=== PATIENT | female | born 1930 | race African-American/Black ===

== ENCOUNTER 2016-09-26 17:03 | Inpatient (IN) | payer MEDICARE, BC ==
[~2016-09-26] VITALS: Ht 160 cm; Wt 58.0 kg
[~2016-09-26 17:03] MED LIST: ASPI81 PO; BENA10TA3 PO; CARB200T6 PO; CITA20TA9 PO; DONE10TA PO; KDUR20 PO; LEVO500 PO; OMEP20 PO; OXYB5 PO; PRAV40 PO
[2016-09-26 19:11] LABS: EOSINOPHILS # (AUTO) 0.02 K/uL (0.00-0.70); EOSINOPHILS % (AUTO) 0.12 % (1.0-6.0); HEMATOCRIT 32.3 % (36-46); HEMOGLOBIN 11.2 g/dL (12.0-16.0); LYMPHOCYTES # (AUTO) 0.6 K/uL (1.0-4.8); MEAN CORPUSCULAR HEMOGLOBIN 32.4 pg (26.0-34.0); MEAN CORPUSCULAR HGB CONC 34.6 G/dL (31.0-37.0); MEAN CORPUSCULAR VOLUME 94 fL (80-100); MONOCYTES # (AUTO) 0.7 K/uL (0.1-1.0); MONOCYTES % (AUTO) 4.5 % (2.0-9.0); NEUTROPHILS # (AUTO) 13.3 K/uL (1.8-7.7); PLATELET COUNT (AUTO) 199 K/uL (150-450); RED BLOOD CELL COUNT(AUTO) 3.45 MIL/uL (4.00-5.20); RED CELL DISTRIBUTION WIDTH 14.2 % (11.5-14.5); WHITE BLOOD COUNT (AUTO) 14.6 K/uL (4.5-11.0)
[2016-09-26 19:12] LABS: NEUTROPHILS % (AUTO) 91.4 % (40.0-70.0)
[2016-09-26 19:23] LABS: ANION GAP 8 mmol/L (8-16); CALCIUM, TOTAL 8.7 mg/dL (8.8-10.5); CARBON DIOXIDE 28 mmol/L (22-29); CHLORIDE 105 mmol/L (98-107); CREATININE 1.44 mg/dL (0.60-1.30); GLOMERULAR FILTR. RATE CALC 42 mL/min (>60); POTASSIUM 4.1 mmol/L (3.5-5.1); PROTHROMBIN TIME 10.7 SEC (9.4-11.6); SODIUM SERUM 141 mmol/L (136-145); UREA NITROGEN, BLOOD 20 mg/dL (7-18)
[2016-09-26 19:31] LABS: RBC MORPHOLOGY COMMENT NORMAL RBC MORPH
[2016-09-26 19:34] LABS: B-TYPE NATRIURETIC PEPTIDE 66 pg/mL (0-100)
[2016-09-26 19:47] LABS: ALANINE AMINOTRANSFERASE 23 U/L (12-78); ALBUMIN 3.2 g/dL (3.4-5.0); ASPARTATE AMINOTRANSFERASE 20 U/L (15-37); BILIRUBIN,TOTAL 0.3 mg/dL (0.1-1.0); CREATINE KINASE, TOTAL 105 U/L (26-192); TOTAL PROTEIN, SERUM 6.4 g/dL (6.4-8.2)
[2016-09-26] MEDS ORDERED: CefTRIAXone 1 GM/DEXTROSE 50 ML IV ONE (20:45)
[2016-09-26] MEDS ORDERED: AZITHROMYCIN 500 MG/NS 250 ML IV ONE (20:45)
[2016-09-26] MEDS ORDERED: SODIUM CHLORIDE 0.9% 1,000 ML IV ONE (20:45)
[2016-09-26] MEDS ORDERED: ACETAMINOPHEN 325 MG TABLET PO PRN (21:45)
[2016-09-26] MEDS ORDERED: 0.9% SODIUM CHLORIDE 10 ML SYRINGE IVP PRN (21:45)
[2016-09-26 21:54] LABS: ADD UA MICROSCOPIC YES; APPEARANCE,URINE CLOUDY (CLEAR); GLUCOSE, URINE (UA) NEGATIVE (NEGATIVE); KETONES,URINE NEGATIVE (NEGATIVE); LEUKOCYTE ESTERASE ,URINE MODERATE (NEGATIVE); OCCULT BLOOD,URINE NEGATIVE (NEGATIVE); PROTEIN,URINE TRACE (NEGATIVE)
[2016-09-26] MEDS ORDERED: IPRATROPIUM BROMIDE 0.5 MG/2.5 ML NEB SOLUTION NEB PRN (22:00)
[2016-09-26] MEDS ORDERED: BISACODYL 10 MG RECTAL RECTAL SUPPOSITORY PR PRN (22:00)
[2016-09-26] MEDS ORDERED: ONDANSETRON HCL 4 MG/2 ML VIAL IVP PRN (22:00)
[2016-09-26] MEDS ORDERED: MAGNESIUM HYDROXIDE SUSPENSION 30 ML UDCUP PO PRN (22:00)
[2016-09-26] MEDS ORDERED: ALBUTEROL SULFATE 2.5 MG/0.5 ML NEB SOLUTION NEB PRN (22:00)
[2016-09-26 22:02] LABS: SQUAMOUS EPITHELIAL CELL,UR Moderate /LPF (None Seen)
[2016-09-26 22:03] LABS: RBC,URINE 0-2 /HPF (0-2)
[2016-09-26 23:50] VITALS: BP 126/72
[2016-09-27 04:57] VITALS: BP 124/56
[2016-09-27 06:36] LABS: BASOPHILS # (AUTO) 0.02 K/uL (0.00-0.20); BASOPHILS % (AUTO) 0.2 % (0.0-2.0); EOSINOPHILS # (AUTO) 0.04 K/uL (0.00-0.70); EOSINOPHILS % (AUTO) 0.38 % (1.0-6.0); HEMATOCRIT 28.3 % (36-46); HEMOGLOBIN 9.7 g/dL (12.0-16.0); LYMPHOCYTES # (AUTO) 1.9 K/uL (1.0-4.8); LYMPHOCYTES % (AUTO) 17.1 % (22.0-44.0); MEAN CORPUSCULAR HGB CONC 34.3 G/dL (31.0-37.0); MEAN CORPUSCULAR VOLUME 93 fL (80-100); MONOCYTES # (AUTO) 0.9 K/uL (0.1-1.0); MONOCYTES % (AUTO) 8.2 % (2.0-9.0); NEUTROPHILS % (AUTO) 74.2 % (40.0-70.0); PLATELET COUNT (AUTO) 162 K/uL (150-450); RED BLOOD CELL COUNT(AUTO) 3.03 MIL/uL (4.00-5.20); RED CELL DISTRIBUTION WIDTH 13.6 % (11.5-14.5); WHITE BLOOD COUNT (AUTO) 10.8 K/uL (4.5-11.0)
[2016-09-27 07:11] LABS: ANION GAP 4 mmol/L (8-16); CALCIUM, TOTAL 8.4 mg/dL (8.8-10.5); CARBON DIOXIDE 31 mmol/L (22-29); CHLORIDE 106 mmol/L (98-107); CHOL/HDL RATIO 2.1 (3.9-5.7); CREATINE KINASE MB 0.6 ng/mL (0-5); CREATINE KINASE, TOTAL 80 U/L (26-192); CREATININE 1.31 mg/dL (0.60-1.30); GLOMERULAR FILTR. RATE CALC 47 mL/min (>60); SODIUM SERUM 141 mmol/L (136-145); THYROID STIMULATING HORMONE 0.38 uIU/mL (0.36-3.74); UREA NITROGEN, BLOOD 20 mg/dL (7-18)
[2016-09-27 07:12] VITALS: BP 126/75
[2016-09-27] MEDS: ACETAMINOPHEN 325 MG TABLET PO PRN ×2 (07:18→19:32)
[2016-09-27 07:41] LABS: HEMOGLOBIN A1C 5.9 % (4.5-6.2)
[2016-09-27] MEDS: PANTOPRAZOLE SODIUM 40 MG/VIAL IVP SCH (09:10)
[2016-09-27] MEDS: PRAVASTATIN SODIUM 40 MG TABLET PO SCH (09:11)
[2016-09-27] MEDS: CarBAMazepine 200 MG TABLET PO SCH (09:11)
[2016-09-27] MEDS: HEPARIN SODIUM,PORCINE 5,000 UNITS/ML VIAL SQ SCH ×2 (09:11→20:21)
[2016-09-27] MEDS: OXYBUTYNIN CHLORIDE 5 MG TABLET PO SCH ×2 (09:12→20:21)
[2016-09-27 11:09] LABS: LACTATE DEHYDROGENASE 300 U/L (81-234); TOTAL PROTEIN, SERUM 6.1 g/dL (6.4-8.2)
[2016-09-27 11:21] VITALS: BP 136/68
[2016-09-27 15:22] VITALS: BP 121/70
[2016-09-27 19:30] VITALS: BP 103/70
[2016-09-27] MEDS ORDERED: SODIUM CHLORIDE 0.9% 250 ML IV ONE (20:21)
[2016-09-27] MEDS: CefTRIAXone 1 GM/DEXTROSE 50 ML IV SCH (20:22)
[2016-09-27] MEDS: AZITHROMYCIN 500 MG/NS 250 ML IV SCH (21:32)
[2016-09-27 22:44] LABS: APPEARANCE,UNSPUN,BODY FLUID BLOODY (CLEAR); COLOR,BODY FLUID RED (LT YELLOW)
[2016-09-27 22:45] LABS: OTHER CELLS,BODY FLUID MACROPHAGES
[2016-09-27 22:47] LABS: PH, BODY FLUID 8
[2016-09-27 23:44] VITALS: BP 142/78
[2016-09-28] VITALS (7 sets, daily range): BP systolic 119–155; BP diastolic 56–85
[2016-09-28 06:37] LABS: BASOPHILS % (AUTO) 0.4 % (0.0-2.0); EOSINOPHILS % (AUTO) 1.7 % (1.0-6.0); HEMOGLOBIN 8.8 g/dL (12.0-16.0); LYMPHOCYTES # (AUTO) 2.1 K/uL (1.0-4.8); LYMPHOCYTES % (AUTO) 27.1 % (22.0-44.0); MEAN CORPUSCULAR HEMOGLOBIN 31.2 pg (26.0-34.0); MEAN CORPUSCULAR HGB CONC 32.7 G/dL (31.0-37.0); MEAN CORPUSCULAR VOLUME 96 fL (80-100); MONOCYTES # (AUTO) 0.7 K/uL (0.1-1.0); MONOCYTES % (AUTO) 8.6 % (2.0-9.0); NEUTROPHILS # (AUTO) 4.9 K/uL (1.8-7.7); NEUTROPHILS % (AUTO) 62.2 % (40.0-70.0); PLATELET COUNT (AUTO) 151 K/uL (150-450); RED BLOOD CELL COUNT(AUTO) 2.83 MIL/uL (4.00-5.20); RED CELL DISTRIBUTION WIDTH 14.5 % (11.5-14.5); WHITE BLOOD COUNT (AUTO) 7.9 K/uL (4.5-11.0)
[2016-09-28 06:58] LABS: CALCIUM, TOTAL 8.3 mg/dL (8.8-10.5); CREATININE 1.32 mg/dL (0.60-1.30); POTASSIUM 4.2 mmol/L (3.5-5.1)
[2016-09-28] MEDS: PANTOPRAZOLE SODIUM 40 MG/VIAL IVP SCH (08:11)
[2016-09-28] MEDS: HEPARIN SODIUM,PORCINE 5,000 UNITS/ML VIAL SQ SCH ×2 (08:12→20:32)
[2016-09-28] MEDS: PRAVASTATIN SODIUM 40 MG TABLET PO SCH (08:12)
[2016-09-28] MEDS: OXYBUTYNIN CHLORIDE 5 MG TABLET PO SCH ×2 (08:12→20:24)
[2016-09-28] MEDS: CarBAMazepine 200 MG TABLET PO SCH (08:12)
[2016-09-28 17:10] LABS: GLUCOSE, BODY FLUID,REF 52 mg/dL; LDH,BODY FLUID,REF 352 IU/L; TOTAL PROTEIN,BODY FLUID,REF 4.7 g/dL
[2016-09-28] MEDS: CefTRIAXone 1 GM/DEXTROSE 50 ML IV SCH (20:24)
[2016-09-28] MEDS: AZITHROMYCIN 500 MG/NS 250 ML IV SCH (21:29)
[2016-09-29 04:30] VITALS: BP 124/70
[2016-09-29] MEDS ORDERED: 0.9% SODIUM CHLORIDE 10 ML SYRINGE IVP PRN (05:15)
[2016-09-29 07:32] VITALS: BP 157/87
[2016-09-29 09:41] LABS: BASOPHILS % (AUTO) 0.3 % (0.0-2.0); EOSINOPHILS % (AUTO) 1.3 % (1.0-6.0); HEMATOCRIT 27.9 % (36-46); HEMOGLOBIN 9.2 g/dL (12.0-16.0); LYMPHOCYTES % (AUTO) 21.9 % (22.0-44.0); MEAN CORPUSCULAR HEMOGLOBIN 31.4 pg (26.0-34.0); MEAN CORPUSCULAR HGB CONC 32.8 G/dL (31.0-37.0); MEAN CORPUSCULAR VOLUME 96 fL (80-100); MONOCYTES # (AUTO) 0.7 K/uL (0.1-1.0); MONOCYTES % (AUTO) 7.6 % (2.0-9.0); NEUTROPHILS # (AUTO) 6.2 K/uL (1.8-7.7); NEUTROPHILS % (AUTO) 68.9 % (40.0-70.0); PLATELET COUNT (AUTO) 173 K/uL (150-450); RED BLOOD CELL COUNT(AUTO) 2.92 MIL/uL (4.00-5.20); RED CELL DISTRIBUTION WIDTH 14.3 % (11.5-14.5); WHITE BLOOD COUNT (AUTO) 8.9 K/uL (4.5-11.0)
[2016-09-29] MEDS: PANTOPRAZOLE SODIUM 40 MG/VIAL IVP SCH (10:12)
[2016-09-29] MEDS: CarBAMazepine 200 MG TABLET PO SCH (10:13)
[2016-09-29] MEDS: PRAVASTATIN SODIUM 40 MG TABLET PO SCH (10:13)
[2016-09-29] MEDS: OXYBUTYNIN CHLORIDE 5 MG TABLET PO SCH ×2 (10:13→20:10)
[2016-09-29] MEDS: HEPARIN SODIUM,PORCINE 5,000 UNITS/ML VIAL SQ SCH ×2 (10:13→20:15)
[2016-09-29 11:27] VITALS: BP 128/71
[2016-09-29 15:20] VITALS: BP 114/59
[2016-09-29] MEDS: ACETAMINOPHEN 325 MG TABLET PO PRN (18:08)
[2016-09-29 19:45] VITALS: BP 134/77
[2016-09-29] MEDS: CefTRIAXone 1 GM/DEXTROSE 50 ML IV SCH (20:10)
[2016-09-29] MEDS: AZITHROMYCIN 500 MG/NS 250 ML IV SCH (21:00)
[2016-09-29 23:43] VITALS: BP 126/68
[2016-09-30 04:08] VITALS: BP 133/80
[2016-09-30 07:30] VITALS: BP 128/78
[2016-09-30] MEDS: HEPARIN SODIUM,PORCINE 5,000 UNITS/ML VIAL SQ SCH ×2 (08:25→21:21)
[2016-09-30] MEDS: PANTOPRAZOLE SODIUM 40 MG/VIAL IVP SCH (08:32)
[2016-09-30] MEDS ORDERED: LIDOCAINE HCL/PF 1% 5 ML VIAL ONE (10:21)
[2016-09-30 11:17] VITALS: BP 117/73
[2016-09-30] MEDS: OXYBUTYNIN CHLORIDE 5 MG TABLET PO SCH ×2 (12:05→21:21)
[2016-09-30] MEDS: PRAVASTATIN SODIUM 40 MG TABLET PO SCH (12:05)
[2016-09-30] MEDS: CarBAMazepine 200 MG TABLET PO SCH (12:06)
[2016-09-30 13:07] LABS: ALBUMIN (IFE & ELECTROPHOR) 2.8 g/dL (2.9-4.4); ALPHA-2 (IFE & PEP) 0.7 g/dL (0.4-1.0); IGG (IMMUNOFIXATION) 766 mg/dL (700-1600); M-SPIKE (IEP) Not Observed g/dL (Not Observed); TOTAL PROTEIN 5.7 g/dL (6.0-8.5)
[2016-09-30 15:00] VITALS: BP 114/72
[2016-09-30 19:59] VITALS: BP 135/78
[2016-09-30] MEDS: CefTRIAXone 1 GM/DEXTROSE 50 ML IV SCH (21:21)
[2016-09-30] MEDS: AZITHROMYCIN 500 MG/NS 250 ML IV SCH (22:37)
[2016-10-01 00:33] VITALS: BP 122/78
[2016-10-01 04:47] VITALS: BP 150/86
[2016-10-01 07:20] VITALS: BP 146/84
[2016-10-01] MEDS: HEPARIN SODIUM,PORCINE 5,000 UNITS/ML VIAL SQ SCH ×2 (09:01→20:11)
[2016-10-01] MEDS: PANTOPRAZOLE SODIUM 40 MG/VIAL IVP SCH (09:01)
[2016-10-01 11:16] VITALS: BP 137/92
[2016-10-01 13:14] LABS: ALPHA-1 URINE (ELP) 1.7 %; ALPHA-2 URINE(ELP) 9.5 %; BETA URINE(ELP) 20.2 %; CREATININE, URINE (mALB) 95.7 mg/dL (Not Estab.); GAMMA URINE(ELP) 16.8 %
[2016-10-01] MEDS: CarBAMazepine 200 MG TABLET PO SCH (14:14)
[2016-10-01] MEDS: PRAVASTATIN SODIUM 40 MG TABLET PO SCH (14:14)
[2016-10-01] MEDS: OXYBUTYNIN CHLORIDE 5 MG TABLET PO SCH ×2 (14:14→20:11)
[2016-10-01 15:53] VITALS: BP 130/85
[2016-10-01 19:41] VITALS: BP 105/65
[2016-10-01] MEDS: CefTRIAXone 1 GM/DEXTROSE 50 ML IV SCH (20:11)
[2016-10-02 00:05] VITALS: BP 136/83
[2016-10-02] MEDS: AZITHROMYCIN 500 MG/NS 250 ML IV SCH (00:10)
[2016-10-02 05:06] VITALS: BP 112/66
[2016-10-02 07:24] VITALS: BP 154/82
[2016-10-02] MEDS: PANTOPRAZOLE SODIUM 40 MG/VIAL IVP SCH (10:05)
[2016-10-02] MEDS: PRAVASTATIN SODIUM 40 MG TABLET PO SCH (10:06)
[2016-10-02] MEDS: CarBAMazepine 200 MG TABLET PO SCH (10:06)
[2016-10-02] MEDS: OXYBUTYNIN CHLORIDE 5 MG TABLET PO SCH (10:06)
[2016-10-02] MEDS: HEPARIN SODIUM,PORCINE 5,000 UNITS/ML VIAL SQ SCH (10:07)
[2016-10-02] MEDS: ACETAMINOPHEN 325 MG TABLET PO PRN (10:07)
[2016-10-02 11:42] VITALS: BP 142/78
== END 2016-10-02 15:19 | DRG 194 ==
LOC: EMS 17:06 → 5S 21:45
PROVIDERS: ADMIT Internal Medicine Geriatric Medicine; ATTEND Internal Medicine Geriatric Medicine
PROC: 5A0935Z Assistance with Respiratory Ventilation, Less than 24 Consecutive Hours (ICD-10-PCS; 2016-09-26)
PROC: 0W993ZZ Drainage of Right Pleural Cavity, Percutaneous Approach (ICD-10-PCS; principal; 2016-09-27)
PROC: 0GBG3ZX Excision of Left Thyroid Gland Lobe, Percutaneous Approach, Diagnostic (ICD-10-PCS; 2016-09-30)
DX: J18.9 Pneumonia, unspecified organism (principal); J90 Pleural effusion, not elsewhere classified; N25.81 Secondary hyperparathyroidism of renal origin; I13.0 Hypertensive heart and chronic kidney disease with heart failure and stage 1 through stage 4 chronic kidney disease, or unspecified chronic kidney disease; I50.30 Unspecified diastolic (congestive) heart failure; R55 Syncope and collapse; R32 Unspecified urinary incontinence; E78.5 Hyperlipidemia, unspecified; E11.22 Type 2 diabetes mellitus with diabetic chronic kidney disease; K21.9 Gastro-esophageal reflux disease without esophagitis; E86.0 Dehydration; I49.5 Sick sinus syndrome; E04.1 Nontoxic single thyroid nodule; R16.0 Hepatomegaly, not elsewhere classified; D18.09 Hemangioma of other sites; G30.9 Alzheimer's disease, unspecified; F02.80 Dementia in other diseases classified elsewhere, unspecified severity, without behavioral disturbance, psychotic disturbance, mood disturbance, and anxiety; I07.1 Rheumatic tricuspid insufficiency; N18.3 Chronic kidney disease, stage 3 (moderate); D63.1 Anemia in chronic kidney disease; Z95.0 Presence of cardiac pacemaker; Z79.899 Other long term (current) drug therapy; Z79.82 Long term (current) use of aspirin; Z90.49 Acquired absence of other specified parts of digestive tract; Z98.49 Cataract extraction status, unspecified eye; Z83.3 Family history of diabetes mellitus; Z82.49 Family history of ischemic heart disease and other diseases of the circulatory system
CPT/HCPCS: 32555; 60100; 70450; 71020; 71250; 76536; 76700; 76770; 76942; 82043; 82306; 82465; 82570; 82607; 82746; 82784; 82945; 83036; 83615; 83735; 83970; 83986; 84155; 84156; 84157; 84165; 84166; 84300; 84439; 84443; 84540; 86334; 87015; 87040; 87070; 87086; 87101; 87205; 88108; 88173; 89050; 89051; 93005; 93306; 93880; 96365; 96368; 97162; 99285; C9113; J0456; J0696; J1644; J2405; J3490; J7030; J7050

== ENCOUNTER → 2018-04-28 | Outpatient (CLI) | payer MEDICARE, BC ==
[~2018-04-28] MED LIST changes: +BENA10TA11 PO; -BENA10TA3 PO; +CITA-106 PO; -CITA20TA9 PO; -DONE10TA PO; +DONE10TA8 PO; -LEVO500 PO; -PRAV40 PO; +PRAV40TA4 PO
== END | disposition home or self-care (01) ==
LOC: RADPV 14:52
PROVIDERS: ATTEND Internal Medicine Geriatric Medicine
DX: M50.323 Other cervical disc degeneration at C6-C7 level (principal); M85.88 Other specified disorders of bone density and structure, other site; M12.88 Other specific arthropathies, not elsewhere classified, other specified site; M43.8X2 Other specified deforming dorsopathies, cervical region; M48.02 Spinal stenosis, cervical region; M25.78 Osteophyte, vertebrae; E78.00 Pure hypercholesterolemia, unspecified
CPT/HCPCS: 72040

== ENCOUNTER 2018-06-26 15:24 | Inpatient (IN) | payer MEDICARE, BC ==
[~2018-06-26] VITALS: Ht 160 cm; Wt 54.5 kg
[2018-06-26 16:17] LABS: GLUCOSE,POINT OF CARE 183 MG/DL (70-110)
[2018-06-26 16:36] LABS: BASOPHILS % (AUTO) 0.3 % (0.0-2.0); EOSINOPHILS % (AUTO) 0.2 % (1.0-6.0); HEMATOCRIT 37.5 % (36-46); HEMOGLOBIN 12.5 g/dL (12.0-16.0); LYMPHOCYTES # (AUTO) 0.6 K/uL (1.0-4.8); LYMPHOCYTES % (AUTO) 7.2 % (22.0-44.0); MEAN CORPUSCULAR HEMOGLOBIN 31.9 pg (26.0-34.0); MEAN CORPUSCULAR HGB CONC 33.3 G/dL (31.0-37.0); MEAN CORPUSCULAR VOLUME 96 fL (80-100); MONOCYTES # (AUTO) 0.5 K/uL (0.1-1.0); MONOCYTES % (AUTO) 5.7 % (2.0-9.0); NEUTROPHILS # (AUTO) 7.4 K/uL (1.8-7.7); PLATELET COUNT (AUTO) 195 K/uL (150-450); RED BLOOD CELL COUNT(AUTO) 3.92 MIL/uL (4.00-5.20); RED CELL DISTRIBUTION WIDTH 14.1 % (11.5-14.5)
[2018-06-26 16:37] LABS: NEUTROPHILS % (AUTO) 86.6 % (40.0-70.0)
[2018-06-26 16:45] LABS: CALCIUM, TOTAL 8.4 mg/dL (8.8-10.5); CREATININE 1.64 mg/dL (0.60-1.30); POTASSIUM 4.4 mmol/L (3.5-5.1)
[2018-06-26 16:49] LABS: PROTHROMBIN TIME 10.4 SEC (9.4-11.6)
[2018-06-26 16:51] LABS: ALBUMIN 3.3 g/dL (3.4-5.0); BILIRUBIN,TOTAL 0.2 mg/dL (0.1-1.0); TOTAL PROTEIN, SERUM 6.8 g/dL (6.4-8.2)
[2018-06-26 16:54] LABS: AMMONIA < 10 umol/L (11-32); TROPONIN I < 0.02 ng/mL (0.00-0.05)
[2018-06-26 18:55] LABS: APPEARANCE,URINE CLOUDY (CLEAR); BILIRUBIN,URINE NEGATIVE (NEGATIVE); GLUCOSE, URINE (UA) 100 mg/dL (NEGATIVE); KETONES,URINE NEGATIVE (NEGATIVE); LEUKOCYTE ESTERASE ,URINE NEGATIVE (NEGATIVE); NITRATE,URINE NEGATIVE (NEGATIVE); OCCULT BLOOD,URINE NEGATIVE (NEGATIVE); PROTEIN,URINE POS 1+ (NEGATIVE); UROBILINOGEN,URINE 0.2 mg/dL (<=1.0)
[2018-06-26] MEDS ORDERED: SODIUM CHLORIDE 0.9% 1,000 ML IV ONE (19:00)
[2018-06-26] MEDS ORDERED: ACETAMINOPHEN 325 MG TABLET PO PRN (19:15)
[2018-06-26] MEDS ORDERED: 0.9% SODIUM CHLORIDE 10 ML SYRINGE IVP PRN (19:15)
[2018-06-26 19:26] LABS: AMORPHOUS SEDIMENT,UR Few /LPF (None Seen); BACTERIA,URINE Few /HPF (None Seen); RBC,URINE None Seen /HPF (0-2); SQUAMOUS EPITHELIAL CELL,UR Rare /LPF (None Seen); WBC,URINE 0-2 /HPF (0-5)
[2018-06-26 21:21] VITALS: BP 168/98
[2018-06-26] MEDS ORDERED: CloNIDine HCL 0.1 MG TABLET PO PRN (22:00)
[2018-06-26 23:34] VITALS: BP 160/81
[2018-06-26] MEDS ORDERED: -PHARMACY VACCINE NOTE- MISC ONE (23:45)
[2018-06-27 04:58] VITALS: BP 144/81
[2018-06-27 07:31] LABS: BASOPHILS % (AUTO) 0.3 % (0.0-2.0); EOSINOPHILS % (AUTO) 0.7 % (1.0-6.0); HEMATOCRIT 35.2 % (36-46); LYMPHOCYTES # (AUTO) 1.4 K/uL (1.0-4.8); LYMPHOCYTES % (AUTO) 21.9 % (22.0-44.0); MEAN CORPUSCULAR HEMOGLOBIN 32.5 pg (26.0-34.0); MEAN CORPUSCULAR HGB CONC 34.2 G/dL (31.0-37.0); MEAN CORPUSCULAR VOLUME 95 fL (80-100); MONOCYTES # (AUTO) 0.5 K/uL (0.1-1.0); MONOCYTES % (AUTO) 7.5 % (2.0-9.0); NEUTROPHILS # (AUTO) 4.4 K/uL (1.8-7.7); NEUTROPHILS % (AUTO) 69.6 % (40.0-70.0); PLATELET COUNT (AUTO) 169 K/uL (150-450); RED CELL DISTRIBUTION WIDTH 14.4 % (11.5-14.5)
[2018-06-27 07:53] LABS: HEMOGLOBIN A1C 5.8 % (4.5-6.2)
[2018-06-27 08:05] LABS: ALBUMIN 3.1 g/dL (3.4-5.0); BILIRUBIN,TOTAL 0.3 mg/dL (0.1-1.0); CALCIUM, TOTAL 8.3 mg/dL (8.8-10.5); CHOL/HDL RATIO 2.4 (3.9-5.7); CREATININE 1.32 mg/dL (0.60-1.30); POTASSIUM 3.6 mmol/L (3.5-5.1); THYROID STIMULATING HORMONE 1.35 uIU/mL (0.36-3.74); TOTAL PROTEIN, SERUM 6.3 g/dL (6.4-8.2)
[2018-06-27 08:16] VITALS: BP 151/78
[2018-06-27] MEDS: PRAVASTATIN SODIUM 40 MG TABLET PO SCH (09:02)
[2018-06-27] MEDS: HEPARIN SODIUM,PORCINE 5,000 UNITS/ML VIAL SQ SCH ×2 (09:02→20:09)
[2018-06-27] MEDS: DOCUSATE SODIUM 250 MG CAPSULE PO SCH ×3 (09:02→20:07)
[2018-06-27] MEDS: BENAZEPRIL HCL 10 MG TABLET PO SCH (09:03)
[2018-06-27] MEDS: ASPIRIN 81 MG CHEWABLE TABLET PO SCH (09:03)
[2018-06-27] MEDS: CITALOPRAM HYDROBROMIDE 20 MG TABLET PO SCH (09:03)
[2018-06-27] MEDS: OMEPRAZOLE 20 MG CAPSULE PO SCH (09:03)
[2018-06-27] MEDS: DONEPEZIL HCL 10 MG TABLET PO SCH (09:03)
[2018-06-27] MEDS ORDERED: IPRATROPIUM BROMIDE 0.5 MG/2.5 ML NEB SOLUTION NEB PRN (10:00)
[2018-06-27] MEDS ORDERED: ONDANSETRON HCL 4 MG/2 ML VIAL IVP PRN (10:00)
[2018-06-27] MEDS ORDERED: 0.9% SODIUM CHLORIDE 10 ML SYRINGE IVP PRN ×2 (10:00)
[2018-06-27] MEDS ORDERED: ALBUTEROL SULFATE 2.5 MG/0.5 ML NEB SOLUTION NEB PRN (10:00)
[2018-06-27] MEDS ORDERED: HYDROCODONE/ACETAMINOPHEN 5-325 MG TABLET PO PRN (10:00)
[2018-06-27] MEDS ORDERED: ACETAMINOPHEN 325 MG TABLET PO PRN (10:00)
[2018-06-27 11:56] VITALS: BP 162/83
[2018-06-27 15:21] VITALS: BP 146/84
[2018-06-27 20:02] VITALS: BP 119/69
[2018-06-28 00:05] VITALS: BP 138/73
[2018-06-28 04:20] VITALS: BP 154/84
[2018-06-28 07:41] VITALS: BP 165/97
[2018-06-28] MEDS: BENAZEPRIL HCL 10 MG TABLET PO SCH (08:24)
[2018-06-28] MEDS: PRAVASTATIN SODIUM 40 MG TABLET PO SCH (08:24)
[2018-06-28] MEDS: ASPIRIN 81 MG CHEWABLE TABLET PO SCH (08:24)
[2018-06-28] MEDS: OMEPRAZOLE 20 MG CAPSULE PO SCH (08:25)
[2018-06-28] MEDS: DONEPEZIL HCL 10 MG TABLET PO SCH (08:25)
[2018-06-28] MEDS: DOCUSATE SODIUM 250 MG CAPSULE PO SCH (08:25)
[2018-06-28] MEDS: HEPARIN SODIUM,PORCINE 5,000 UNITS/ML VIAL SQ SCH (08:25)
[2018-06-28] MEDS: CITALOPRAM HYDROBROMIDE 20 MG TABLET PO SCH (08:26)
[2018-06-28 09:34] LABS: BASOPHILS % (AUTO) 0.4 % (0.0-2.0); EOSINOPHILS % (AUTO) 0.7 % (1.0-6.0); HEMATOCRIT 35.1 % (36-46); LYMPHOCYTES # (AUTO) 1.6 K/uL (1.0-4.8); LYMPHOCYTES % (AUTO) 28.8 % (22.0-44.0); MEAN CORPUSCULAR HEMOGLOBIN 32.3 pg (26.0-34.0); MEAN CORPUSCULAR HGB CONC 34.3 G/dL (31.0-37.0); MEAN CORPUSCULAR VOLUME 94 fL (80-100); MONOCYTES # (AUTO) 0.4 K/uL (0.1-1.0); MONOCYTES % (AUTO) 6.2 % (2.0-9.0); NEUTROPHILS # (AUTO) 3.6 K/uL (1.8-7.7); NEUTROPHILS % (AUTO) 63.9 % (40.0-70.0); PLATELET COUNT (AUTO) 166 K/uL (150-450); RED BLOOD CELL COUNT(AUTO) 3.73 MIL/uL (4.00-5.20)
[2018-06-28 09:45] LABS: HEMOGLOBIN A1C 5.9 % (4.5-6.2)
[2018-06-28 10:01] LABS: CHOL/HDL RATIO 2.4 (3.9-5.7); THYROID STIMULATING HORMONE 1.82 uIU/mL (0.36-3.74)
[2018-06-28 11:54] VITALS: BP 149/89
== END 2018-06-28 14:10 | disposition home or self-care (01) | DRG 312 ==
LOC: EMS 15:25 → 5S 19:00
PROVIDERS: ADMIT Internal Medicine; ATTEND Internal Medicine
PROC: 4B02XSZ Measurement of Cardiac Pacemaker, External Approach (ICD-10-PCS; principal; 2018-06-27)
DX: R55 Syncope and collapse (principal); I13.0 Hypertensive heart and chronic kidney disease with heart failure and stage 1 through stage 4 chronic kidney disease, or unspecified chronic kidney disease; I50.32 Chronic diastolic (congestive) heart failure; E04.2 Nontoxic multinodular goiter; E11.22 Type 2 diabetes mellitus with diabetic chronic kidney disease; E78.00 Pure hypercholesterolemia, unspecified; E78.5 Hyperlipidemia, unspecified; F03.90 Unspecified dementia, unspecified severity, without behavioral disturbance, psychotic disturbance, mood disturbance, and anxiety; I48.91 Unspecified atrial fibrillation; I49.5 Sick sinus syndrome; K21.9 Gastro-esophageal reflux disease without esophagitis; M81.0 Age-related osteoporosis without current pathological fracture; N18.3 Chronic kidney disease, stage 3 (moderate); Z80.0 Family history of malignant neoplasm of digestive organs; Z83.3 Family history of diabetes mellitus; Z90.49 Acquired absence of other specified parts of digestive tract; Z95.0 Presence of cardiac pacemaker; Z98.42 Cataract extraction status, left eye
CPT/HCPCS: 51701; 70450; 83036; 84443; 93005; 93306; 93880; 96360; 97161; 97166; G0378; J1644; J7030